=== PATIENT | female | born 1940 | race Two or more races ===

== ENCOUNTER 2019-07-03 17:13 | Observation (INO) | payer MEDICARE, MEDICAID ==
--- NOTE | 2019-07-03 19:24 | RADIOLOGY REPORT (SQ) ---
EXAM DESCRIPTION: CT HEAD WITHOUT COMPLETED DATE/TIME: 07/03/2019 7:06 pm REASON FOR STUDY: seizures, falls, R29.6 REPEATED FALLS COMPARISON: None. TECHNIQUE: Axial images acquired through the brain without intravenous contrast. Images reviewed wi th bone, brain and subdural windows. Additional sagittal and coronal reconstructions were generated. Images stored on PACS. All CT scanners at this facility use dose modulation, iterative reconstruction, and/or weight based d osing when appropriate to reduce radiation dose to as low as reasonably achievable (ALARA). [facility]: Dose Right [facility]: CareDose [facility]: Dose Right [facility]: Teradose 4D [facility]: Small Demons RADIATION DOSE: CT Rad equipment meets quality standard of care and radiation dose reduction techniq ues were employed. CTDIvol: 53.2 mGy. DLP: 1017 mGy-cm. mGy. LIMITATIONS: None. FINDINGS: VENTRICLES: Normal size and contour. CEREBRUM: Mild cortical atrophy. No masses. No hemorrhage. No midline shift. No evidence for acut e infarction. Normal hodgson/white matter differentiation. No areas of low density in the white matter. CEREBELLUM: No masses. No hemorrhage. No alteration of density. No evidence for acute infarction. EXTRAAXIAL SPACES: No fluid collections. No masses. ORBITS AND GLOBE: No intra- or extraconal masses. Normal contour of globe without masses. CALVARIUM: No fracture. PARANASAL SINUSES: No fluid or mucosal thickening. SOFT TISSUES: No mass or hematoma. OTHER: No other significant finding. IMPRESSION: Mild involutional changes with no acute intracranial imaging findings. EVIDENCE OF ACUTE STROKE: NO. COMMENT: Quality ID # [id number]: Final reports with documentation of one or more dose reduction techniques (e.g., Automated exposure control, adjustment of the mA and/or kV according to patient size, use of iterative reconstruction technique) TECHNICAL DOCUMENTATION: JOB ID: [id number] [employer]- All Rights Reserved Reading location - IP/workstation name: [email or web address]
--- NOTE | 2019-07-03 19:32 | RADIOLOGY REPORT (SQ) ---
EXAM DESCRIPTION: CHEST 2 VIEWS COMPLETED DATE/TIME: 07/03/2019 7:03 pm REASON FOR STUDY: seizures, falls, COMPARISON: None. EXAM PARAMETERS: NUMBER OF VIEWS: two views TECHNIQUE: Digital Frontal and Lateral radiographic views of the chest acquired. RADIATION DOSE: NA LIMITATIONS: none FINDINGS: LUNGS AND PLEURA: No opacities, masses or pneumothorax. No pleural effusion. MEDIASTINUM AND HILAR STRUCTURES: No masses or contour abnormalities. HEART AND VASCULAR STRUCTURES: Heart size is borderline. There is no pulmonary edema. BONES: No acute findings. HARDWARE: None in the chest. OTHER: No other significant finding. IMPRESSION: Borderline cardiomegaly without pulmonary edema. TECHNICAL DOCUMENTATION: JOB ID: [id number] [employer]- All Rights Reserved Reading location - IP/workstation name: [email or web address]
[2019-07-03 19:52] LABS: ABSOLUTE EOSINOPHILS # (AUTO) 0.1 10^3/uL (0.0-0.6); ABSOLUTE LYMPHOCYTES (AUTO) 2.2 10^3/uL (0.5-4.7); ABSOLUTE MONOCYTES (AUTO) 0.8 10^3/uL (0.1-1.4); ABSOLUTE NEUT (AUTO) 5.4 10^3/uL (1.7-8.2); BASOPHILS % (AUTO) 0.6 % (0-2); EOSINOPHILS % (AUTO) 0.9 % (0-6); HEMOGLOBIN 15.1 g/dL (12.0-15.5); MEAN CORPUSCULAR HEMOGLOBIN 27.7 pg (27.0-33.4); MEAN CORPUSCULAR HGB CONC 32.1 g/dL (32.0-36.0); MEAN CORPUSCULAR VOLUME 86 fl (80-97); MONOCYTES % (AUTO) 9.8 % (3-13); PLATELET COUNT 210 10^3/uL (150-450); RED BLOOD COUNT 5.45 10^6/uL (3.72-5.28); RED CELL DISTRIBUTION WIDTH 14.3 % (11.5-14.0); SEGMENTED NEUTROPHILS % (AUTO) 62.7 % (42-78); TOTAL CELLS COUNTED % (AUTO) 100 %; WHITE BLOOD COUNT 8.6 10^3/uL (4.0-10.5)
[2019-07-03 20:18] LABS: ALBUMIN 4.6 g/dL (3.5-5.0); ALKALINE PHOSPHATASE 92 U/L (38-126); ANION GAP 11 (5-19); ASPARTATE AMINO TRANSFERASE 35 U/L (14-36); BILIRUBIN,DIRECT 0.1 mg/dL (0.0-0.4); BILIRUBIN,TOTAL 0.7 mg/dL (0.2-1.3); BLOOD UREA NITROGEN 15 mg/dL (7-20); CALCIUM 9.9 mg/dL (8.4-10.2); CARBON DIOXIDE 28 mmol/L (22-30); CHLORIDE 103 mmol/L (98-107); CREATINE KINASE 63 U/L (30-135); GLUCOSE 119 mg/dL (75-110); POTASSIUM 4.9 mmol/L (3.6-5.0)
[2019-07-03 20:27] LABS: CREATINE KINASE MB 0.55 ng/mL (<4.55)
[2019-07-03 20:30] LABS: TROPONIN I < 0.012 ng/mL
--- NOTE | 2019-07-03 21:06 | PDOC H&P ---
History of Present Illness Admission Date/PCP: 07/03/19 17:13 LILIAN LAMAR MD History of Present Illness: MARIETTA ABRAHAM is a 79 year old female.She came to the office with her daughter for evaluation of frequent fall, there was questionable loss of consciousness. She just recently relocated from [place], she had similar problems in [place] that resulted in hospitalization, at the time she sustained a fracture of the facial bones she also had CT scan of the head done which was negative for any intracranial hemorrhage. I reviewed the record from that hospital admission in [place], I do not see any EEG that was done, patient continues to fall without a clear etiology, she was recently taken of atorvastatin because of concern that there could be part of the problem or etiology of the fall. She was admitted directly from the office into the hospital for the evaluation of this frequent fall without any clear etiology.She also has a drainage from the umbilicus, this has been ongoing for few weeks, the etiology is not clear, patient stated that she had a similar problem years ago when she underwent hysterectomy.EEG was done, there was no epileptiform abnormalities no sharp waves no spike there was no seizure. EEG was mildly abnormal due to the diffuse beta activity which persisted throughout the study, the lack of a posterior dominant rhythm, the overall low amplitude of the EEG activity.Though a single normal routine EEG does not rule out the possibility of epilepsy Past Medical History Cardiac Medical History: Reports: Hypertension Psychiatric Medical History: Denies: Depression Social History Smoking Status: Never Smoker Frequency of Alcohol Use: None Hx Recreational Drug Use: No Drugs: None Hx Prescription Drug Abuse: No Family History Parental Family History Reviewed: Yes Children Family History Reviewed: Yes Sibling(s) Family History Reviewed.: Yes Medication/Allergy Home Medications: Enalapril Maleate [Vasotec 10 mg Tablet] 10 mg PO QAM 07/04/19 Allergies/Adverse Reactions: No Known Allergies Allergy (Unverified 03/30/14 10:06) Review of Systems Constitutional: ABSENT: chills, fever(s), headache(s), weight gain, weight loss Eyes: ABSENT: visual disturbances Ears: ABSENT: hearing changes Cardiovascular: ABSENT: chest pain, dyspnea on exertion, edema, orthropnea, palpitations Respiratory: ABSENT: cough, hemoptysis Gastrointestinal: ABSENT: abdominal pain, constipation, diarrhea, hematemesis, hematochezia, nausea, vomiting Genitourinary: ABSENT: dysuria, hematuria Musculoskeletal: ABSENT: joint swelling Integumentary: ABSENT: rash, wounds Neurological: PRESENT: frequent falls, lack of coordination Psychiatric: ABSENT: anxiety, depression, homidical ideation, suicidal ideation Endocrine: ABSENT: cold intolerance, heat intolerance, menstrual abnormalities, polydipsia, polyuria Hematologic/Lymphatic: ABSENT: easy bleeding, easy bruising, lymphadenopathy Physical Exam Vital Signs: Temp Pulse Resp BP Pulse Ox 98.3 F 86 16 153/87 H 98 07/03/19 18:02 07/03/19 19:00 07/03/19 18:02 07/03/19 18:02 07/03/19 18:02 Intake & Output 07/02/19 07/03/19 07/04/19 06:59 06:59 06:59 Weight 65.5 kg General appearance: PRESENT: no acute distress, well-developed, well-nourished Head exam: PRESENT: atraumatic, normocephalic Eye exam: PRESENT: conjunctiva pink, EOMI, PERRLA Ear exam: PRESENT: normal external ear exam Mouth exam: PRESENT: moist, tongue midline Neck exam: PRESENT: full ROM Respiratory exam: PRESENT: clear to auscultation yury Cardiovascular exam: PRESENT: RRR, +S1, +S2 Pulses: PRESENT: normal dorsalis pedis pul, +2 pedal pulses bilateral Vascular exam: PRESENT: normal capillary refill GI/Abdominal exam: PRESENT: normal bowel sounds, soft, other - Drainage at the umbilicus Rectal exam: PRESENT: deferred Neurological exam: PRESENT: alert, CN II-XII grossly intact Skin exam: PRESENT: dry, intact, warm Results Laboratory Results: 07/03/19 18:45 07/03/19 18:45 07/03/19 07/03/19 18:45 18:45 WBC 8.6 RBC 5.45 H Hgb 15.1 Hct 47.0 MCV 86 MCH 27.7 MCHC 32.1 RDW 14.3 H Plt Count 210 Seg Neutrophils % 62.7 Sodium 141.6 Potassium 4.9 Chloride 103 Carbon Dioxide 28 Anion Gap 11 BUN 15 Creatinine 0.79 Est GFR ( Amer) > 60 Glucose 119 H Calcium 9.9 Total Bilirubin 0.7 AST 35 Alkaline Phosphatase 92 Total Protein 8.0 Albumin 4.6 07/03/19 07/03/19 18:45 18:45 Creatine Kinase 63 CK-MB (CK-2) 0.55 Troponin I < 0.012 Impressions: Chest X-Ray 07/03/19 00:00 IMPRESSION: Borderline cardiomegaly without pulmonary edema. Head CT 07/03/19 00:00 IMPRESSION: Mild involutional changes with no acute intracranial imaging findings. EVIDENCE OF ACUTE STROKE: NO. Assessment & Plan - Diagnosis (1) Syncope Qualifiers: Syncope type: unspecified Qualified Code(s): R55 - Syncope and collapse Is this a current diagnosis for this admission?: Yes Plan: Patient is admitted for evaluation of syncope, 2D echo ordered (2) Frequent falls Is this a current diagnosis for this admission?: Yes Plan: The potential etiology is quite long including seizure, syncope, musculoskeletal disorder, disequilibrium syndrome (3) Infection involving stitch with abscess Is this a current diagnosis for this admission?: Yes Plan: Consult surgery
[2019-07-03 23:56] LABS: APPEARANCE,URINE CLEAR; BILIRUBIN,URINE NEGATIVE (NEGATIVE); COLOR,URINE YELLOW; GLUCOSE, URINE NEGATIVE (NEGATIVE); KETONES,URINE NEGATIVE (NEGATIVE); LEUKOCYTE ESTERASE,URINE NEGATIVE (NEGATIVE); NITRITE,URINE NEGATIVE (NEGATIVE); PROTEIN,URINE NEGATIVE (NEGATIVE); UROBILINOGEN,URINE NEGATIVE mg/dL (<2.0)
[2019-07-04 04:11] LABS: CREATINE KINASE MB 0.72 ng/mL (<4.55)
[2019-07-04 04:13] LABS: TROPONIN I < 0.012 ng/mL
[2019-07-04 11:07] LABS: CREATINE KINASE MB 0.64 ng/mL (<4.55)
[2019-07-04 11:11] LABS: TROPONIN I < 0.012 ng/mL
--- NOTE | 2019-07-04 15:37 | NEURO WORKBENCH EEG REPORT ---
EEG Report Patient: Kiley Lisa ID: [id number] Referring Doctor: Usha Valle Date: 07/04/2019 Reason for study: Evaluate Epileptiform activity Medications: Enalapril History: This is a 79 year old female with a history of glaucoma, HTN, GERD admitted after loss of consciousness. She denies a history of prior seizures. Head CT upon admission with no acute pathology. This EEG was requested for evaluation of epileptiform activity. EEG Interpretation: This EEG was recorded during wakefulness, stage I, and stage II sleep. The awake EEG is characterized by a background of predominantly diffuse low amplitude (typically 5-10 uV) beta activity with a intermittent fragmentary independent alpha activity in the bi-temporal regions. There was not a well developed posterior dominant rhythm (PDR); however the EEG is reactive to eye opening and closure. There were rare periods of independent bi-temporal theta activity. The EEG is symmetric in amplitudes and frequencies. Photic stimulation resulted in photic driving (best at 11 Hz, 13 Hz, and 15 Hz), and there was no epileptiform activity elicited with photic stimulation. Stage I sleep was achieved and characterized by slow rolling eye movements, slowing of the background rhythm by 1-2 Hz, and emergence of more frequent and prolonged bi-temporal theta activity. Stage II sleep was achieved with further generalized background slowing, and symmetric sleep spindles were noted. Diffuse beta activity persisted into all stages of sleep. There were no epileptiform abnormalities (no sharp waves and no spikes). There were no seizures. The EKG showed a regular rhythm with typically 60-70 beats per minute. EEG Impression: This EEG is mildly abnormal due to the diffuse beta activity which persisted throughout the study, the lack of a posterior dominant rhythm, and the overall low amplitudes of the EEG activity. Diffuse beta activity is a non-specific finding which may be seen with the use of sedative medications such as benzodiazepines and barbiturates. The overall low amplitude activity noted is also non-specific but may be seen with diffuse cerebral atrophy. Clinical correlation advised. The EEG is otherwise within normal limits for age. There was no epileptiform activity or seizures. A single normal routine EEG does not rule out the possibility of epilepsy. If there is high clinical suspicion for epilepsy, then additional EEG evaluation should be considered with a sleep- deprived EEG or more prolonged EEG monitoring. INTERPRETING NEUROLOGIST: Jelani Helm MD Board certified by the [place] [employer] in Neurology, Clinical Neurophysiology, and Sleep Medicine MTDD
--- NOTE | 2019-07-04 20:21 | PDOC CONSULTATION ---
Consultation Consult Date: 07/04/19 Provider Consulted: NILSON LOVELL Consult reason:: Drainage near umbilicus History of Present Illness Admission Date/PCP: 07/03/19 17:13 LILIAN LAMAR MD History of Present Illness: MARIETTA ABRAHAM is a 79 year old female admitted for neurologic symptoms but patient noted drainage from the left para-umbilical area 1.5 weeks ago. Had history of hysterectomy about 20 years ago and had drainage from the same site after surgery but stopped after she squeez the area. Has been without problems until 1.5 weeks ago. Denies fever or chills, nausea, diarrhea nor constipation. Past Medical History Cardiac Medical History: Reports: Hypertension Denies: Myocardial Infarction Pulmonary Medical History: Denies: Asthma Neurological Medical History: Denies: Seizures GI Medical History: Denies: Hepatitis, Hiatal Hernia Psychiatric Medical History: Denies: Depression Hematology: Denies: Anemia, Sickle Cell Disease Past Surgical History Past Surgical History: Reports: Hysterectomy Denies: Amputation, Mastectomy, Pacemaker Social History Smoking Status: Never Smoker Frequency of Alcohol Use: None Hx Recreational Drug Use: No Drugs: None Hx Prescription Drug Abuse: No Family History Parental Family History Reviewed: Yes Children Family History Reviewed: No Sibling(s) Family History Reviewed.: No Medication/Allergy Home Medications: Enalapril Maleate [Vasotec 10 mg Tablet] 10 mg PO QAM 07/04/19 Allergies/Adverse Reactions: No Known Allergies Allergy (Unverified 03/30/14 10:06) Review of Systems Constitutional: PRESENT: as per HPI Physical Exam Vital Signs: Temp Pulse Resp BP Pulse Ox 98.3 F 81 20 152/79 H 99 07/04/19 19:33 07/04/19 19:33 07/04/19 19:33 07/04/19 19:33 07/04/19 19:33 Intake & Output 07/03/19 07/04/19 07/05/19 06:59 06:59 06:59 Intake Total 360 650 Output Total 800 Balance -440 650 Weight 65.5 kg General appearance: PRESENT: no acute distress Head exam: PRESENT: atraumatic Eye exam: PRESENT: conjunctiva pink Neck exam: PRESENT: full ROM Respiratory exam: PRESENT: clear to auscultation yury Cardiovascular exam: PRESENT: RRR Pulses: PRESENT: normal radial pulses GI/Abdominal exam: PRESENT: soft, other - There is a scab on the left para- umbilical area that drained a small amount of pus when squeezed. C/S sent Rectal exam: PRESENT: deferred Neurological exam: PRESENT: alert, oriented to person, oriented to place, oriented to time, oriented to situation Psychiatric exam: PRESENT: appropriate affect Skin exam: PRESENT: normal color, warm Results Laboratory Results: 07/03/19 18:45 07/03/19 18:45 07/03/19 07/03/19 18:45 23:35 Sodium 141.6 Potassium 4.9 Chloride 103 Carbon Dioxide 28 Anion Gap 11 BUN 15 Creatinine 0.79 Est GFR ( Amer) > 60 Glucose 119 H Calcium 9.9 Total Bilirubin 0.7 AST 35 Alkaline Phosphatase 92 Total Protein 8.0 Albumin 4.6 Urine Color YELLOW Urine Appearance CLEAR Urine pH 8.0 Ur Specific [place] 1.010 Urine Protein NEGATIVE Urine Glucose (UA) NEGATIVE Urine Ketones NEGATIVE Urine Blood NEGATIVE Urine Nitrite NEGATIVE Ur Leukocyte Esterase NEGATIVE Urine WBC (Auto) 2 Urine RBC (Auto) 1 07/03/19 07/03/19 07/04/19 18:45 18:45 03:15 Creatine Kinase 63 54 CK-MB (CK-2) 0.55 Troponin I < 0.012 07/04/19 07/04/19 07/04/19 03:15 10:28 10:28 Creatine Kinase 57 CK-MB (CK-2) 0.72 0.64 Troponin I < 0.012 < 0.012 Impressions: Chest X-Ray 07/03/19 00:00 IMPRESSION: Borderline cardiomegaly without pulmonary edema. Head CT 07/03/19 00:00 IMPRESSION: Mild involutional changes with no acute intracranial imaging findings. EVIDENCE OF ACUTE STROKE: NO. Assessment & Plan - Diagnosis (1) Infection involving stitch with abscess Is this a current diagnosis for this admission?: Yes - Time Time Spent: 30 to 50 Minutes - Inpatient Certification Medical Necessity: Need for IV Antibiotics, Need for Surgery - Plan Summary Plan Summary: start IV antibiotics Xray abdominal wall to R/O foreign body May need exploration of abdominal wall if infection does not improve in 48 hrs.
--- NOTE | 2019-07-04 21:14 | PDOC PROGRESS REPORT ---
Subjective Progress Note for:: 07/04/19 Subjective:: Patient was admitted yesterday for observation and evaluation of frequent falls, syncope, drainage from the umbilicus. Consultation was requested from surgery regarding the drainage from the umbilicus. The surgery recommend IV antibiotic for 48 hours, if no resolution of the drainage she may need surgical procedure Reason For Visit: SEIZURES, FALLS, SYNCOPE Physical Exam Vital Signs: Temp Pulse Resp BP Pulse Ox 98.3 F 81 20 152/79 H 99 07/04/19 19:33 07/04/19 19:33 07/04/19 19:33 07/04/19 19:33 07/04/19 19:33 Intake & Output 07/03/19 07/04/19 07/05/19 06:59 06:59 06:59 Intake Total 360 650 Output Total 800 Balance -440 650 Weight 65.5 kg General appearance: PRESENT: no acute distress Eye exam: PRESENT: PERRLA Respiratory exam: PRESENT: clear to auscultation yury Cardiovascular exam: PRESENT: +S1, +S2 GI/Abdominal exam: PRESENT: soft Neurological exam: PRESENT: alert Results Laboratory Results: 07/03/19 18:45 07/03/19 18:45 07/03/19 23:35 Urine Color YELLOW Urine Appearance CLEAR Urine pH 8.0 Ur Specific [place] 1.010 Urine Protein NEGATIVE Urine Glucose (UA) NEGATIVE Urine Ketones NEGATIVE Urine Blood NEGATIVE Urine Nitrite NEGATIVE Ur Leukocyte Esterase NEGATIVE Urine WBC (Auto) 2 Urine RBC (Auto) 1 07/03/19 07/03/19 07/04/19 18:45 18:45 03:15 Creatine Kinase 63 54 CK-MB (CK-2) 0.55 Troponin I < 0.012 07/04/19 07/04/19 07/04/19 03:15 10:28 10:28 Creatine Kinase 57 CK-MB (CK-2) 0.72 0.64 Troponin I < 0.012 < 0.012 Impressions: Chest X-Ray 07/03/19 00:00 IMPRESSION: Borderline cardiomegaly without pulmonary edema. Head CT 07/03/19 00:00 IMPRESSION: Mild involutional changes with no acute intracranial imaging findings. EVIDENCE OF ACUTE STROKE: NO. Assessment & Plan - Diagnosis (1) Syncope Qualifiers: Syncope type: unspecified Qualified Code(s): R55 - Syncope and collapse Is this a current diagnosis for this admission?: Yes (2) Frequent falls Is this a current diagnosis for this admission?: Yes Plan: The potential etiology is quite long including seizure, syncope, musculoskeletal disorder, disequilibrium syndrome (3) Infection involving stitch with abscess Is this a current diagnosis for this admission?: Yes Plan: Continue IV antibiotic
[2019-07-04] MEDS: CEFAZOLIN 1 GM/D5W RTU 1 GM/50 ML RTUPB IV SCH (21:48)
--- NOTE | 2019-07-05 02:00 | RADIOLOGY REPORT (SQ) ---
CLINICAL HISTORY: abdominal infection, abscess COMPARISON: None. TECHNIQUE: XR ABDOMEN 2 VIEWS SUPINE ERECT 07/04/2019 12:00 AM CDT FINDINGS: There is large amount of stool throughout the colon. There are no abnormal radiopaque foreign bodies or abnormal calcifications. Osseous structures are grossly unremarkable. IMPRESSION: Constipation.
[2019-07-05] MEDS: CEFAZOLIN 1 GM/D5W RTU 1 GM/50 ML RTUPB IV SCH ×3 (06:01→23:11)
--- NOTE | 2019-07-05 18:53 | PDOC PROGRESS REPORT ---
Subjective Progress Note for:: 07/05/19 Subjective:: Patient seen by the bedside, the drainage from the periumbilical site is improved. She described what looks like vertigo, brainstem infarct, MRI brain is ordered to rule out brainstem infarct Reason For Visit: SEIZURES, FALLS, SYNCOPE Physical Exam Vital Signs: Temp Pulse Resp BP Pulse Ox 97.9 F 69 16 150/76 H 100 07/05/19 12:03 07/05/19 14:00 07/05/19 12:03 07/05/19 12:03 07/05/19 12:03 Intake & Output 07/04/19 07/05/19 07/06/19 06:59 06:59 06:59 Intake Total 360 950 Output Total 800 Balance -440 950 Weight 65.5 kg 65.9 kg General appearance: PRESENT: no acute distress Eye exam: PRESENT: PERRLA Respiratory exam: PRESENT: clear to auscultation yury Cardiovascular exam: PRESENT: +S1, +S2 GI/Abdominal exam: PRESENT: soft Neurological exam: PRESENT: alert Results Laboratory Results: 07/03/19 18:45 07/03/19 18:45 07/03/19 07/03/19 07/04/19 18:45 18:45 03:15 Creatine Kinase 63 54 CK-MB (CK-2) 0.55 Troponin I < 0.012 07/04/19 07/04/19 07/04/19 03:15 10:28 10:28 Creatine Kinase 57 CK-MB (CK-2) 0.72 0.64 Troponin I < 0.012 < 0.012 Impressions: Chest X-Ray 07/03/19 00:00 IMPRESSION: Borderline cardiomegaly without pulmonary edema. Head CT 07/03/19 00:00 IMPRESSION: Mild involutional changes with no acute intracranial imaging findings. EVIDENCE OF ACUTE STROKE: NO. Abdomen X-Ray 07/04/19 00:00 IMPRESSION: Constipation. Assessment & Plan - Diagnosis (1) Syncope Qualifiers: Syncope type: unspecified Qualified Code(s): R55 - Syncope and collapse Is this a current diagnosis for this admission?: Yes (2) Frequent falls Is this a current diagnosis for this admission?: Yes (3) Infection involving stitch with abscess Is this a current diagnosis for this admission?: Yes Plan: Continue IV antibiotic
--- NOTE | 2019-07-05 22:02 | RADIOLOGY REPORT (SQ) ---
EXAM DESCRIPTION: MR BRAIN WITHOUT IV CONTRAST COMPLETED DATE/TME: 07/05/2019 00:00 CLINICAL HISTORY: 79 years, Female, CVA. Fall with possible loss of consciousness. Technologist note: Dizziness, lightheadedness, syncope and weakness. Blurred vision. COMPARISON: None. TECHNIQUE: Multiplanar, multisequence MRI of the brain without intravenous contrast. Images stored on PACS. LIMITATIONS: None. FINDINGS: No abnormal increased signal intensity is present on diffusion-weighted imaging to suggest restricted diffusion/acute infarction. T2/flair weighted imaging reveals multifocal areas of patchy increased signal intensity present in a subcortical and periventricular deep white matter distribution, a nonspecific finding however may be seen with small vessel ischemic change. There is no evidence of intracranial hemorrhage, mass or edema. Midline structures are within normal limits. The ventricles and sulci are enlarged compatible with underlying volume loss. Major intracranial flow voids are identified. The paranasal sinuses and mastoid air cells are patent. IMPRESSION: No abnormal increased signal intensity is present on diffusion-weighted imaging to suggest restricted diffusion/acute infarction. T2/flair weighted imaging reveals multifocal areas of patchy increased signal intensity present in a subcortical and periventricular deep white matter distribution, a nonspecific finding however may be seen with small vessel ischemic change. copyright 2010 [employer]- All Rights Reserved
[2019-07-06] MEDS: CEFAZOLIN 1 GM/D5W RTU 1 GM/50 ML RTUPB IV SCH ×3 (05:22→21:09)
--- NOTE | 2019-07-06 16:17 | PDOC PROGRESS REPORT ---
Subjective Progress Note for:: 07/06/19 Subjective:: no pains Reason For Visit: SEIZURES, FALLS, SYNCOPE Physical Exam Vital Signs: Temp Pulse Resp BP Pulse Ox 98.3 F 82 16 139/86 H 98 07/06/19 11:36 07/06/19 14:00 07/06/19 11:36 07/06/19 11:36 07/06/19 11:36 Intake & Output 07/05/19 07/06/19 07/07/19 06:59 06:59 06:59 Intake Total 950 1610 50 Output Total 0 Balance 950 1610 50 Weight 65.9 kg 66.9 kg Exam: Stitch abscess site Right para-umbilical area is dry with no tenderness. Results Laboratory Results: 07/03/19 18:45 07/03/19 18:45 07/03/19 07/03/19 07/04/19 18:45 18:45 03:15 Creatine Kinase 63 54 CK-MB (CK-2) 0.55 Troponin I < 0.012 07/04/19 07/04/19 07/04/19 03:15 10:28 10:28 Creatine Kinase 57 CK-MB (CK-2) 0.72 0.64 Troponin I < 0.012 < 0.012 Impressions: Chest X-Ray 07/03/19 00:00 IMPRESSION: Borderline cardiomegaly without pulmonary edema. Head CT 07/03/19 00:00 IMPRESSION: Mild involutional changes with no acute intracranial imaging findings. EVIDENCE OF ACUTE STROKE: NO. Abdomen X-Ray 07/04/19 00:00 IMPRESSION: Constipation. Head MRI 07/05/19 00:00 IMPRESSION: No abnormal increased signal intensity is present on diffusion-weighted imaging to suggest restricted diffusion/acute infarction. T2/flair weighted imaging reveals multifocal areas of patchy increased signal intensity present in a subcortical and periventricular deep white matter distribution, a nonspecific finding however may be seen with small vessel ischemic change. copyright 2011 [employer]- All Rights Reserved Assessment & Plan - Diagnosis (1) Infection involving stitch with abscess Is this a current diagnosis for this admission?: Yes - Time Time Spent with patient: 15-24 minutes - Plan Summary Plan Summary: Initial cultyre of stitch abscess showed G+ cocci in clusters. Lilkly staph. Could go home on po Clindamycin x 5 days and follow up in the surgical clinic for posible semi-elective removal of foreign body (suture) in the OR.
--- NOTE | 2019-07-06 22:52 | PDOC PROGRESS REPORT ---
Subjective Progress Note for:: 07/06/19 Subjective:: MRI brain showed enlarged ventricle due to loss of volume suggestive of normal pressure hydrocephalus. The manifestation of balance problem, urinary incontinence, cognitive impairment is consistent with symptoms and signs of normal pressure hydrocephalus Reason For Visit: SEIZURES, FALLS, SYNCOPE Physical Exam Vital Signs: Temp Pulse Resp BP Pulse Ox 98.1 F 74 16 146/68 H 98 07/06/19 16:39 07/06/19 19:00 07/06/19 16:39 07/06/19 16:39 07/06/19 16:39 Intake & Output 07/05/19 07/06/19 07/07/19 06:59 06:59 06:59 Intake Total 950 1610 703 Output Total 0 Balance 950 1610 703 Weight 65.9 kg 66.9 kg General appearance: PRESENT: no acute distress Eye exam: PRESENT: PERRLA Respiratory exam: PRESENT: clear to auscultation yury Cardiovascular exam: PRESENT: +S1, +S2 GI/Abdominal exam: PRESENT: soft Neurological exam: PRESENT: alert Results Laboratory Results: 07/03/19 18:45 07/03/19 18:45 07/03/19 07/03/19 07/04/19 18:45 18:45 03:15 Creatine Kinase 63 54 CK-MB (CK-2) 0.55 Troponin I < 0.012 07/04/19 07/04/19 07/04/19 03:15 10:28 10:28 Creatine Kinase 57 CK-MB (CK-2) 0.72 0.64 Troponin I < 0.012 < 0.012 Impressions: Chest X-Ray 07/03/19 00:00 IMPRESSION: Borderline cardiomegaly without pulmonary edema. Head CT 07/03/19 00:00 IMPRESSION: Mild involutional changes with no acute intracranial imaging findings. EVIDENCE OF ACUTE STROKE: NO. Abdomen X-Ray 07/04/19 00:00 IMPRESSION: Constipation. Head MRI 07/05/19 00:00 IMPRESSION: No abnormal increased signal intensity is present on diffusion-weighted imaging to suggest restricted diffusion/acute infarction. T2/flair weighted imaging reveals multifocal areas of patchy increased signal intensity present in a subcortical and periventricular deep white matter distribution, a nonspecific finding however may be seen with small vessel ischemic change. copyright 2011 [employer]- All Rights Reserved Assessment & Plan - Diagnosis (1) Syncope Qualifiers: Syncope type: unspecified Qualified Code(s): R55 - Syncope and collapse Is this a current diagnosis for this admission?: Yes (2) Frequent falls Is this a current diagnosis for this admission?: Yes (3) Infection involving stitch with abscess Is this a current diagnosis for this admission?: Yes (4) Normal pressure hydrocephalus Is this a current diagnosis for this admission?: Yes
[2019-07-07] MEDS: CEFAZOLIN 1 GM/D5W RTU 1 GM/50 ML RTUPB IV SCH ×3 (05:09→22:53)
[2019-07-07] MEDS ORDERED: NORMAL SALINE 1000 ML 1,000 ML IV PRN (16:16)
[2019-07-07] MEDS ORDERED: ONDANSETRON HCL INJ/PF 4 MG/2 ML SDV ONE (16:31)
[2019-07-07] MEDS ORDERED: MIDAZOLAM 2 MG/2 ML INJ ONE (16:31)
[2019-07-07] MEDS ORDERED: FENTANYL CITRATE INJ/PF 100 MCG/2 ML AMPUL ONE (16:31)
[2019-07-07] MEDS ORDERED: PROPOFOL INJ 200 MG/20 ML VIAL IV ONE (16:31)
[2019-07-07] MEDS ORDERED: LIDOCAINE 0.5% INJ-PF (5 MG/ML) 50 ML SDV ONE (16:34)
[2019-07-07] MEDS ORDERED: MEPERIDINE HCL/PF INJ 25 MG/1 ML DISP.SYRIN IV PRN (16:59)
[2019-07-07] MEDS ORDERED: MORPHINE SULFATE 10 MG/ML INJ IV PRN (16:59)
[2019-07-07] MEDS ORDERED: ONDANSETRON HCL INJ/PF 4 MG/2 ML SDV IV PRN (16:59)
[2019-07-07] MEDS ORDERED: OXYCODONE-ACETAMINOPHEN 5-325 MG TABLET PO PRN ×2 (16:59)
[2019-07-07] MEDS ORDERED: PROMETHAZINE HCL INJ 25 MG/1 ML VIAL IV PRN ×2 (16:59)
[2019-07-07] MEDS ORDERED: FENTANYL CITRATE INJ/PF 100 MCG/2 ML AMPUL IV PRN ×3 (16:59)
[2019-07-07] MEDS ORDERED: DIPHENHYDRAMINE HCL 50 MG/ML VIAL IV PRN (16:59)
--- NOTE | 2019-07-07 17:58 | Operative Report ---
Operative Report DATE OF SURGERY: 07/07/19 PREOPERATIVE DIAGNOSIS: Stitch abscess abdominal wall POSTOPERATIVE DIAGNOSIS: same OPERATION: Incision and drainage and removal of old stitches of abdominal wall SURGEON: NILSON LOVELL ANESTHESIA: LMAC TISSUE REMOVED OR ALTERED: stithches x2 COMPLICATIONS: none ESTIMATED BLOOD LOSS: 2 ccs INTRAOPERATIVE FINDINGS: Abscess with 2 old braided stitches PROCEDURE: Patient was placed in supine position and after adequate IV sedation the abdomen was then prepped and draped in the usual sterile fashion. Appropriate timeout was called. Local anesthesia was infiltrated around the abscess cavity site on the left paraumbilical area. Abscess site appears to be about 1 cm in diameter. Next the abscess site was then incised and a small amount of pus excreted out. Cultures were obtained. Next with the use of the hemostat couple of stitches were removed. This appeared to be braided sutures likely likely nonabsorbable. The incision was about 1 cm wide and the depth of the wound is about less than 1 cm deep. The area was then irrigated. Adequate hemostasis noted. It was then dressed with 4 x 4. Patient tolerated procedure well. Estimated blood loss was about 2 cc. Needle instrument sponge count were all correct. Patient brought to recovery room in satisfactory condition.
[2019-07-07] MEDS ORDERED: ACETAMINOPHEN 325 MG TABLET PO PRN (18:19)
--- NOTE | 2019-07-07 22:17 | PDOC DISCHARGE SUMMARY ---
General - Admit/Disc Date/PCP Admission Date/Primary Care Provider: 07/03/19 17:13 LILIAN LAMAR MD Discharge Date: 07/07/19 - Discharge Diagnosis (1) Syncope Is this a current diagnosis for this admission?: Yes (2) Frequent falls Is this a current diagnosis for this admission?: Yes (3) Infection involving stitch with abscess Is this a current diagnosis for this admission?: Yes - Additional Information Resuscitation Status: Full Code Home Medications: Enalapril Maleate [Vasotec 10 mg Tablet] 10 mg PO QAM 07/04/19 History of Present Illness History of Present Illness: MARIETTA ABRAHAM is a 79 year old female.She came to the office with her daughter for evaluation of frequent fall, there was questionable loss of consciousness. She just recently relocated from [place], she had similar problems in [place] that resulted in hospitalization, at the time she sustained a fracture of the facial bones she also had CT scan of the head done which was negative for any intracranial hemorrhage. I reviewed the record from that hospital admission in [place], I do not see any EEG that was done, patient continues to fall without a clear etiology, she was recently taken of atorvastatin because of concern that there could be part of the problem or etiology of the fall. She was admitted directly from the office into the hospital for the evaluation of this frequent fall without any clear etiology.She also has a drainage from the umbilicus, this has been ongoing for few weeks, the etiology is not clear, patient stated that she had a similar problem years ago when she underwent hysterectomy.EEG was done, there was no epileptiform abnormalities no sharp waves no spike there was no seizure. EEG was mildly abnormal due to the diffuse beta activity which persisted throughout the study, the lack of a posterior dominant rhythm, the overall low amplitude of the EEG activity.Though a single normal routine EEG does not rule out the possibility of epilepsy Hospital Course Hospital Course: Patient was admitted for the management of frequent fall, urinary incontinence, intermittent confusion, syncope, infection of stitch abscess of abscess.EEG was done, it was abnormal EEG but there was no demonstrable seizure activity. The 2D echo that was done demonstrated preserved ejection fraction of left ventricle there was no aortic valve stenosis, MRI of the brain was done, it demonstrated enlargement of the ventricular space due to loss of volume, this is consistent with normal pressure hydrocephalus. Patient symptomatology including cognitive impairment, abnormal gait, mobility, urinary incontinence is consistent with normal pressure hydrocephalus. She also was seen by the surgeon for the management of infection of a stitch abscess in the abdominal wall, she was treated with IV antibiotic ultimately she underwent incision and drainage by the surgeon today Physical Exam Vital Signs: Temp Pulse Resp BP Pulse Ox 97.9 F 76 16 160/82 H 92 07/07/19 17:56 07/07/19 19:00 07/07/19 17:56 07/07/19 17:56 07/07/19 17:56 Intake & Output 07/06/19 07/07/19 07/08/19 06:59 06:59 06:59 Intake Total 1610 803 850 Output Total 0 1 Balance 1610 803 849 Weight 66.9 kg 65.5 kg General appearance: PRESENT: no acute distress Eye exam: PRESENT: PERRLA Respiratory exam: PRESENT: clear to auscultation yury Cardiovascular exam: PRESENT: +S1, +S2 GI/Abdominal exam: PRESENT: soft Neurological exam: PRESENT: alert Results Laboratory Results: 07/03/19 18:45 07/03/19 18:45 07/04/19 19:10 Umbilicus Gram Stain - Final 07/04/19 19:10 Umbilicus Wound Culture - Final Staphylococcus Aureus No Anaerobic Organisms 07/03/19 07/03/19 07/04/19 18:45 18:45 03:15 Creatine Kinase 63 54 CK-MB (CK-2) 0.55 Troponin I < 0.012 07/04/19 07/04/19 07/04/19 03:15 10:28 10:28 Creatine Kinase 57 CK-MB (CK-2) 0.72 0.64 Troponin I < 0.012 < 0.012 Impressions: Chest X-Ray 07/03/19 00:00 IMPRESSION: Borderline cardiomegaly without pulmonary edema. Head CT 07/03/19 00:00 IMPRESSION: Mild involutional changes with no acute intracranial imaging findings. EVIDENCE OF ACUTE STROKE: NO. Abdomen X-Ray 07/04/19 00:00 IMPRESSION: Constipation. Head MRI 07/05/19 00:00 IMPRESSION: No abnormal increased signal intensity is present on diffusion-weighted imaging to suggest restricted diffusion/acute infarction. T2/flair weighted imaging reveals multifocal areas of patchy increased signal intensity present in a subcortical and periventricular deep white matter distribution, a nonspecific finding however may be seen with small vessel ischemic change. copyright 2010 [employer]- All Rights Reserved Qualifiers - * PATIENT BEING DISCHARGED WITH ANY OF THE FOLLOWING DIAGNOSIS: No VTE patient discharged on overlapping Therapy?: No Reason(s) for not prescribing Overlap Therapy:: Not indicated Stroke Pt being discharged on Anti-thrombolytic therapy?: No Reason(s) for not prescribing Anti-thrombolytic therapy:: Not indicated Stroke Pt being discharged on Anti-coagulation therapy?: No Reason(s) for not prescribing Anti-coagulation therapy:: Not indicated Stroke Pt being discharged on Statins?: No Reason(s) for not prescribing Statins therapy:: Not indicated DE Pt being discharged on Aspirin therapy?: No Reason(s) for not prescribing Aspirin therapy:: Not indicated DE Pt being discharged on Statins?: No Reason(s) for not prescribing Statin therapy:: Not indicated DE Pt discharged ACEI/ARBS?: No Reason(s) for not prescribing ACEI/ARBS:: Not indicated Acute Heart Failure - Is this a Heart Failure Patient?: No
[2019-07-07] MEDS: HYDRALAZINE HCL 50 MG TABLET PO SCH (22:52)
[2019-07-08] MEDS: HYDRALAZINE HCL 50 MG TABLET PO SCH (06:51)
[2019-07-08] MEDS: CEFAZOLIN 1 GM/D5W RTU 1 GM/50 ML RTUPB IV SCH (06:52)
--- NOTE | 2019-07-08 06:57 | PDOC PROGRESS REPORT ---
Subjective Progress Note for:: 07/08/19 Subjective:: no pains Reason For Visit: SEIZURES, FALLS, SYNCOPE Physical Exam Vital Signs: Temp Pulse Resp BP Pulse Ox 97.9 F 65 20 142/78 H 98 07/08/19 03:48 07/08/19 03:48 07/08/19 03:48 07/08/19 03:48 07/08/19 03:48 Intake & Output 07/06/19 07/07/19 07/08/19 06:59 06:59 06:59 Intake Total 1610 803 900 Output Total 0 1 Balance 1610 803 899 Weight 66.9 kg 65.5 kg Exam: I&D site looks clean and dry. Results Laboratory Results: 07/03/19 18:45 07/03/19 18:45 07/04/19 19:10 Umbilicus Gram Stain - Final 07/04/19 19:10 Umbilicus Wound Culture - Final Staphylococcus Aureus No Anaerobic Organisms 07/03/19 07/03/19 07/04/19 18:45 18:45 03:15 Creatine Kinase 63 54 CK-MB (CK-2) 0.55 Troponin I < 0.012 07/04/19 07/04/19 07/04/19 03:15 10:28 10:28 Creatine Kinase 57 CK-MB (CK-2) 0.72 0.64 Troponin I < 0.012 < 0.012 Impressions: Chest X-Ray 07/03/19 00:00 IMPRESSION: Borderline cardiomegaly without pulmonary edema. Head CT 07/03/19 00:00 IMPRESSION: Mild involutional changes with no acute intracranial imaging findings. EVIDENCE OF ACUTE STROKE: NO. Abdomen X-Ray 07/04/19 00:00 IMPRESSION: Constipation. Head MRI 07/05/19 00:00 IMPRESSION: No abnormal increased signal intensity is present on diffusion-weighted imaging to suggest restricted diffusion/acute infarction. T2/flair weighted imaging reveals multifocal areas of patchy increased signal intensity present in a subcortical and periventricular deep white matter distribution, a nonspecific finding however may be seen with small vessel ischemic change. copyright 2010 [employer]- All Rights Reserved Assessment & Plan - Diagnosis (1) Infection involving stitch with abscess Is this a current diagnosis for this admission?: Yes - Time Time Spent with patient: 15-24 minutes - Inpatient Certification Medical Necessity: Need for IV Antibiotics - Plan Summary Plan Summary: I&D site looks good. 2 sutures removed from abscess site left side of abdomen yesterday. OK to go home anytime. will need another 3 days of antibiotics OK to shower by tomorrow and just leave wound open without bandaid unless has drainage
[2019-07-08 11:40] VITALS: BP 143/78
--- NOTE | 2019-07-09 18:30 | XCELERA REPORT ---
[address] [address] Transthoracic Echocardiogram Report Name: MARIETTA ABRAHAM Age: 79 yrs Gender: Female : 1940 Patient Status: Inpatient Patient Location: [address] [place], [place] [address] Study Date: 07/03/2019 07:23 PM Height: 62 in Weight: 143 lb BSA: 1.7 m2 Procedure: A two-dimensional transthoracic echocardiogram with color flow and Doppler was performed. Study Quality: Poor. Reason For Study: Syncope History: Syncope. Ordering Physician: LILIAN LAMAR Performed By: Christi Krishnamurthy Interpretation Summary The left ventricle is normal in size. Probably no LVH and probably normal wall motion. The left ventricular ejection fraction is within normal limits. LV EF is 60% Doppler measurements suggest impaired left ventricular relaxation, which is associated with grade I/IV or mild diastolic dysfunction Probably no ASD ,VSD , or PFO seen. The right ventricle is not well visualized secondary to technical limitations The left atrial size is normal. There is no evidence of mitral valve prolapse. There is no vegetation seen on the mitral valve. There is no mitral valve stenosis. There is a trace amount of mitral regurgitation There is no aortic valvular vegetation. There is no aortic valve stenosis No aortic regurgitation is present. There is no tricuspid stenosis. There is a trace amount of tricuspid regurgitation There is mild pulmonary hypertension by echo RVSP is 32 to 37 mm of Hg , with RA mean of 5 to 10. There is no pulmonic valvular stenosis. There is no pulmonic valvular regurgitation. The aortic root is not well visualized but is probably normal size. The inferior vena cava appeared normal and decreased > 50% with respiration (RAP 5-10 mmHg) Trace to small pericardial effusion with no echo evidence of tamponade. MMode/2D Measurements & Calculations RVDd: 2.6 cm LVIDd: 4.0 cm FS: 30.4 % Ao root diam: 2.8 cm IVSd: 1.0 cm LVIDs: 2.8 cm EDV(Teich): Ao root area: LVPWd: 0.89 cm 70.8 ml 6.0 cm2 ESV(Teich): LA dimension: 2.9 cm 29.5 ml EF(Teich): 58.3 % LVLd ap4: 6.1 cm SV(MOD-sp4): EDV(MOD-sp4): 52.0 ml 81.0 ml LVLs ap4: 4.8 cm ESV(MOD-sp4): 29.0 ml EF(MOD-sp4): 64.2 % Doppler Measurements & Calculations MV E max nicole: MV P1/2t max nicole: Ao V2 max: LV V1 max P.6 cm/sec 89.5 cm/sec 90.3 cm/sec 3.2 mmHg MV A max nicole: MV P1/2t: 52.0 msec Ao max P.3 mmHg LV V1 max: 79.5 cm/sec MVA(P1/2t): 4.2 cm2 89.3 cm/sec MV E/A: 0.85 MV dec slope: 503.5 cm/sec2 MV dec time: 0.19 sec PA V2 max: TR max nicole: MV P1/2t-pr_phl: 120.8 cm/sec 260.6 cm/sec 52.0 msec PA max P.8 mmHgTR max P.2 mmHg Left Ventricle The left ventricle is normal in size. Probably no LVH and probably normal wall motion. The left ventricular ejection fraction is within normal limits. LV EF is 60%. Doppler measurements suggest impaired left ventricular relaxation, which is associated with grade I/IV or mild diastolic dysfunction. Probably no ASD ,VSD , or PFO seen. Right Ventricle The right ventricle is not well visualized secondary to technical limitations. Atria Right atrium not well visualized secondary to technical limitations. The left atrial size is normal. Mitral Valve There is no evidence of mitral valve prolapse. There is no vegetation seen on the mitral valve. There is no mitral valve stenosis. There is a trace amount of mitral regurgitation. Aortic Valve There is no aortic valvular vegetation. There is no aortic valve stenosis. No aortic regurgitation is present. Tricuspid Valve There is no tricuspid stenosis. There is a trace amount of tricuspid regurgitation. There is mild pulmonary hypertension by echo. RVSP is 32 to 37 mm of Hg , with RA mean of 5 to 10. Pulmonic Valve There is no pulmonic valvular stenosis. There is no pulmonic valvular regurgitation. Great Vessels The aortic root is not well visualized but is probably normal size. The inferior vena cava appeared normal and decreased > 50% with respiration (RAP 5-10 mmHg). Effusions Trace to small pericardial effusion with no echo evidence of tamponade. : LILIAN LAMAR Lakshmi
== END 2019-07-08 11:31 | disposition home health service (06) ==
LOC: 3N 17:13 → INTOOBSV 17:13 → OBSVTOIN 17:13
PROVIDERS: ADMIT Internal Medicine; ATTEND Internal Medicine
PROC: 0W9F0ZX Drainage of Abdominal Wall, Open Approach, Diagnostic (ICD-10-PCS; principal; 2019-07-07 17:00)
DX: R55 Syncope and collapse (principal); R29.6 Repeated falls; T81.41XA Infection following a procedure, superficial incisional surgical site, initial encounter; L02.211 Cutaneous abscess of abdominal wall; B95.61 Methicillin susceptible Staphylococcus aureus infection as the cause of diseases classified elsewhere; Y83.8 Other surgical procedures as the cause of abnormal reaction of the patient, or of later complication, without mention of misadventure at the time of the procedure; R94.01 Abnormal electroencephalogram [EEG]; R32 Unspecified urinary incontinence; R41.0 Disorientation, unspecified; R27.9 Unspecified lack of coordination; G93.89 Other specified disorders of brain; Z90.710 Acquired absence of both cervix and uterus
CPT/HCPCS: 95819 ×2; 36415; 87070 ×2; 87205 ×2; 82553 ×2; 82550 ×2; 85025; 87075 ×2; 87077 ×2; 80076; 80048; 81001; 84484 ×2; 87186 ×2; 93306; 70551; 74019; 71046; 70450; 00800; 10180; G0378 ×6; J2250; J0690 ×5; A9270 ×2; J3490; J2405; J2704; 800; J3010